=== PATIENT | female | born 1970 | race Two or more races ===

== ENCOUNTER 2025-02-25 14:51 | Outpatient (RCR) | payer BC, SELFPAY ==
--- NOTE | 2025-02-25 15:12 | PTNOTE_ITS ---
PT OP Initial Eval Patient Information Outpatient Physical Therapy Treatment Date: 02/25/25 Visit Reasons: Neck pain Medical Diagnosis: M54.2 Treatment Dx #1: neck pain with radiculopathy Start of Care: 02/25/25 Date of Onset: 3 yrs ago Smoking Status Smoking Status: Never smoker Initial Assessment Subjective: Pt is 54 yr old palestinian speaking female who reports neck pain x3 yrs since falling at home. The pain runs down the UE's to the hands R>L and pain is worse at night. She is limited with lifting heavy things and the hands feel weak with opening bottles. PMH: high cholesterol, allergies Imaging: with provider Pt goal: to get rid of the neck pain Objective: C/S AROM: ? Ext 40% with pain at end-range ? Flexion: full ? L rotation: 60% ? R rotation: 70% ? B SB: 15 deg ? C/S compression: pain ? TTP: moderate of lower C/S paraspinals around C4-7 and UT?s ? ULTT: negative B Authorization Specialist strength: B weakness ? Assessment: Pt presents with myofascial tenderness of lower C/S and articular ? restrictions consistent with facet pain and possibly disk issues. Pt requires skilled therapy and has fair rehab potential. Short Term and Employment Specialist/Program Manager Goals 1. Ind with HEP ? 2. Improved L rotation to 80% B ? 3. Decreased TTP of lower C/S from mod to min ? 4. Pt will turn head L to R x5 with <=4/10 pain Treatment Plan ? 1. Manual therapy ? 2. Therex ? 3. Modalities as indicated, moist heat, ice, estim Frequency and Duration: 2x a week for 6 weeks Certification Dates: 02/25/25 to 05/27/25 Procedure Charges OP PT Eval Mod Complex 30 minutes: Yes
== END 2025-03-27 23:59 | disposition home or self-care (01) ==
LOC: CPTX 14:51
PROVIDERS: PCP Physician Assistant; Referring Provider Physician Assistant; Visit Provider Physician Assistant
DX: M54.12 Radiculopathy, cervical region (principal)
CPT/HCPCS: 97162

== ENCOUNTER 2025-04-05 16:22 | Outpatient (RCR) | payer BC, SELFPAY ==
--- NOTE | 2025-04-05 17:24 | PT.ODAYNRPT ---
PT Outpatient Daily Note OP Daily Note Outpatient Physical Therapy Treatment Date: 04/05/25 Visit Reasons: Neck pain Subjective: Worsening neck pain Objective: Mechanical traction C/S x10' MHP: C/S x7' Assessment: High neck pain Plan: Continue per POC Length of Time (minutes) of Treatment: 30 Minutes Procedure Charges Traction Mechanical: Yes
== END 2025-04-26 23:59 | disposition home or self-care (01) ==
LOC: CPTX 16:22
PROVIDERS: PCP Physician Assistant; Referring Provider Physician Assistant; Visit Provider Physician Assistant
DX: M54.12 Radiculopathy, cervical region (principal)
CPT/HCPCS: 97012

== ENCOUNTER → 2025-04-15 | Outpatient (CLI) | payer BC, SELFPAY ==
--- NOTE | 2025-04-15 15:00 | XR_ITS ---
Examination: Screening digital mammography, bilateral Computer aided detection 3-D breast Tomosynthesis, bilateral Date and time of exam: April 15, 2025 1447 hours Compared to mammograms dating to September 27, 2011 Indication: Screening Technique: Nonmagnified MLO, CC views of the breasts to been obtained, reconstructed from 3-D Tomosynthesis images. R2 computer aided detection program utilized for evaluation of suspicious masses and/or abnormal calcifications. 3-D Tomosynthesis images obtained. Findings: The breasts are heterogeneously dense, which may obscure small masses Benign calcifications. No interval suspicious masses Impression: BI-RADS category II: Benign Findings. Recommend 1 year follow-up mammogram.
== END | disposition home or self-care (01) ==
LOC: CDIM 14:38
PROVIDERS: Referring Provider Physician Assistant; Visit Provider Physician Assistant
DX: Z12.31 Encounter for screening mammogram for malignant neoplasm of breast (principal); R92.323 Mammographic fibroglandular density, bilateral breasts; R92.1 Mammographic calcification found on diagnostic imaging of breast
CPT/HCPCS: 77063; 77067

== ENCOUNTER 2025-05-11 16:27 | Outpatient (RCR) | payer BC, SELFPAY ==
--- NOTE | 2025-05-11 18:19 | PT.ODS1RPT ---
PT OP Progress/Discharge Note Date of Service: 05/11/25 Progress Note/DC Note Progress Note/Discharge Note: DC Note Patient Information Visit Reasons: Neck pain Service Continue Service or Discharge: Discharge Discharge Date: 05/11/25 Status Subjective: Worsening neck pain Objective: Same as evaluation Mechanical traction C/S x7' at 9 lbs Assessment: Pt has attended the eval and 2 Rx sessions wtih limited progress with therapy goals due to continued high level neck pain that may be worsening. She may benefit from further diagnostic imaging of the C/S. Plan: D/C Procedure Charges Therapeutic Exercise 30 minutes: Yes
== END 2025-05-27 23:59 | disposition home or self-care (01) ==
LOC: CPTX 16:27
PROVIDERS: PCP Physician Assistant; Referring Provider Physician Assistant; Visit Provider Physician Assistant
DX: M54.12 Radiculopathy, cervical region (principal)
CPT/HCPCS: 97110